=== PATIENT | male | born 1965 | race Caucasian/White ===

== ENCOUNTER 2020-05-19 21:23 | Emergency (ER) | payer OTHER, SELFPAY ==
[2020-05-19 21:40] VITALS: BP 156/94; PULSE 90; PULSE 96; RESP 14; TEMP 37.2; O2SAT 97
--- NOTE | 2020-05-19 22:14 | ECG_ITS ---
Measurements Intervals [place] Rate: 94 P: 58 VT: 158 QRS: 63 QRSD: 91 T: 54 QT: 341 QTc: 427 Interpretive Statements SINUS RHYTHM NORMAL ECG Electronically Signed On 05-20-2020 7:20:58 BOX ICER by Fadi La D.O.
--- NOTE | 2020-05-19 22:14 | ED.GENADULT ---
HPI - General Adult General Chief complaint: Unspecified Stated complaint: high blood pressure Source: patient Mode of arrival: ambulatory Limitations: no limitations History of Present Illness HPI narrative: Torrey is a 54M with a PMH of HTN, HLD and DMII that presented to the ED with a high blood pressure. He had had a headache and sinus pain. He has felt like this when his BP is high in the past so he checked it. It was >190 systolic on 2 separate occasions today so he came in to the ED. He denies CP, SOB, N/V, confusion, vision changes and anuria. Related Data Home Medications Medication Instructions Recorded Confirmed atorvastatin 20 mg PO HS 05/19/20 05/19/20 glipizide 2.5 mg PO BID 05/19/20 05/19/20 lisinopril 20 mg PO HS 05/19/20 05/19/20 Allergies Allergy/AdvReac Type Severity Reaction Status Date / Time No Known Allergies Allergy Verified 05/19/20 21:59 Review of Systems Constitutional: Constitutional: Reports no additional constitutional complaints Eyes: Eyes: Reports no additional eye complaints ENT: Reports system reviewed and no additional complaints, except as documented Cardiovascular: Cardiovascular: Reports as per HPI Respiratory: Respiratory: Reports no additional respiratory complaints Gastrointestinal: Gastrointestinal: Reports as per HPI Genitourinary: Genitourinary: Reports no additional male genitourinary complaints Musculoskeletal: Musculoskeletal: Reports no additional musculoskeletal complaints Integumentary/Breasts: Skin/Breast: Reports system reviewed and no additional complaints, except as docu Neurologic: Reports system reviewed and no additional complaints, except as documented Psychiatric: Psychiatric: Reports no additional psychiatric complaints Endocrine: Endocrine: Reports no additional endocrine complaints Hematologic/Lymphatic: Hematologic/Lymphatic: Reports no additional hematologic/lymphatic complaints Allergic/Immunologic: Allergic/Immunologic: Reports no additional allergic/immunologic complaints Exam Const: General: cooperative, healthy appearing, comfortable and no acute distress HENMT: Head: normal to inspection Eyes: General: appearance normal, both eyes and all related structures Neck: Neck: normal visual inspection Chest: Chest palpation & inspection: normal inspection of the chest Resp: Effort & Inspection: normal respiratory effort and able to speak in complete sentences Auscultation: clear to auscultation bilaterally Cardio: Jugular venous distension: no JVD Rate: regular rate Rhythm: regular rhythm Heart sounds: no murmurs GI: Auscultation: normal bowel sounds Back/Spine/Pelvis: Back: no CVA tenderness Skin: General skin exam: normal color and no rashes or lesions noted Neuro: General: oriented to person, oriented to place and oriented to time Extrem: General: normal to inspection Course Course Emergency Course: Torrey was seen and evaluated. Ordered amlodipine, an EKG and labs as below. EKG showed NSR with a rate of 94, normal axis and no ST elevation/depression. He is currently asymptomatic. Labs were largely unremarkable so he was discharged home to follow up with is PCP. Vital Signs Vital signs: Vital Signs Temperature 99 F 05/19/20 21:40 Pulse Rate 96 05/19/20 21:40 Respiratory Rate 14 05/19/20 21:40 Blood Pressure 156/94 H 05/19/20 21:40 Pulse Oximetry 97 05/19/20 21:40 Temperature 99 F 05/19/20 21:40 Pulse Rate 88 05/19/20 22:30 Respiratory Rate 18 05/19/20 22:30 Blood Pressure 140/84 05/19/20 22:30 Pulse Oximetry 97 05/19/20 21:40 Medical Decision Making Vital Signs Vital Signs: Vital Signs Temperature 99 F 05/19/20 21:40 Pulse Rate 96 05/19/20 21:40 Respiratory Rate 14 05/19/20 21:40 Blood Pressure 156/94 H 05/19/20 21:40 Pulse Oximetry 97 05/19/20 21:40 Temperature 99 F 05/19/20 21:40 Pulse Rate 88 05/19/20 22:30 Respiratory Rate 18
[2020-05-19] MEDS: amLODIPine BESYLATE 5 MG TABLET 10 MG PO (22:23)
--- NOTE | 2020-05-19 22:25 | PC.NURSE ---
report provided to oncoming RN Dinora Romano
[2020-05-19 22:30] VITALS: BP 140/84; PULSE 88; RESP 18
[2020-05-19 22:30] LABS: Basophils Absolute Auto 0.03 K/mm3 (0.00-0.10); Basophils Percent Auto 0.5 % (0.0-1.0); Eosinophils Absolute Auto 0.09 K/mm3 (0.02-0.50); Eosinophils Percent Auto 1.5 % (1.0-6.0); Hematocrit 42.1 % (40.0-54.0); Hemoglobin 13.8 g/dL (14.0-18.0); Immature Granulocyte Absolute 0.03 K/mm3 (0.00-0.00); Immature Granulocyte Percent A 0.5 % (0.0-0.0); Lymphocytes Absolute Auto 1.61 K/mm3 (1.10-4.50); Lymphocytes Percent Auto 27.4 % (18.0-42.0); Mean Corpuscular HGB Conc 32.8 g/dL (32.0-36.0); Mean Corpuscular Hemoglobin 31.4 pg (27.0-31.0); Mean Corpuscular Volume 95.7 fL (78.0-102.0); Mean Platelet Volume 8.9 fl (8.7-11.0); Monocytes Absolute Auto 0.81 K/mm3 (0.10-0.90); Monocytes Percent Auto 13.8 % (2.0-11.0); Neutrophils Absolute Auto 3.3 K/mm3 (1.7-7.2); Neutrophils Percent Auto 56.3 % (50.0-70.0); Platelet Count Result 173 K/mm3 (150-420); Red Cell Distribution Width 12.5 % (11.6-14.4); White Blood Count 5.9 K/mm3 (4.8-10.8)
[2020-05-19 22:48] LABS: Anion Gap 11 mmol/L (8-16); Blood Urea Nitrogen 17 mg/dL (7-18); Calcium 9.2 mg/dL (8.5-10.1); Carbon Dioxide 25 mmol/L (21-32); Chloride 103 mmol/L (98-108); Estimated CRCL calculation 65 ml/min; Estimated Glomerular Filt Rate > 60; Glucose 190 mg/dL (70-99); Osmolality Calculated 294 mOsm/kg (285-295); Potassium 3.8 mmol/L (3.5-5.1); Sodium 139 mmol/L (136-145); Troponin I 6.5 ng/L (0.00-60.4)
[2020-05-19 23:02] VITALS: BP 142/88; PULSE 82; RESP 18; TEMP 36.6; O2SAT 96
== END 2020-05-19 23:02 | disposition home or self-care (01) ==
PROVIDERS: Emergency Provider Family Medicine; PCP Physician Assistant
DX: I16.0 Hypertensive urgency (principal)
CPT/HCPCS: 36415; 80048; 84484; 85025; 93005; 99283; 99284; A9270

== ENCOUNTER 2020-08-01 19:15 | Emergency (ER) | payer OTHER, SELFPAY ==
--- NOTE | ~2020-08-01 | CT_ITS ---
EXAMINATION: CT brain wo con EXAM DATE: 08/01/2020 20:10 INDICATION: New onset severe headache. TECHNIQUE: Spiral CT of the head was performed without contrast. Axial, coronal and sagittal images were reviewed. The dose-length product (DLP) for this examination was 605.33 mGy-cm. The exposure w as tailored according to patient size, and iterative reconstruction (ASIR) was used as additional dos e reduction technique. There is no prior study for comparison. FINDINGS: There is no acute intraparenchymal hemorrhage. No evidence of intraparenchymal brain mass lesion. No evidence of acute infarction. There is no mass effect or midline shift. The ventricles are normal in size. There are no extra-axial collections. There are no acute calvarial fractures. T he orbits are unremarkable. Soft tissue is unremarkable. Completely opacified left sphenoid sinus with mucoperiosteal thickening and fluid. There is mild to m oderate right maxillary sinus and mild left ethmoid sinus mucoperiosteal thickening. The mastoid air cells are well aerated. IMPRESSION: 1. No acute intracranial findings. 2. Sinus opacity as above. Reviewed, dictated and finalized at location A. FITS SPECIALIST RECRUITER
[2020-08-01 19:32] VITALS: BP 127/77; PULSE 111; RESP 20; TEMP 36.7; O2SAT 96
--- NOTE | 2020-08-01 19:35 | ED.HA ---
HPI - Headache General Chief Complaint: Headache Stated Complaint: headache Time Seen by Provider: 08/01/20 19:30 Source: patient and family Mode of arrival: ambulatory Limitations: no limitations History of Present Illness HPI Narrative: Patient comes in stating he did not feel well last pm. He woke this am and has had a headache since this morning. He took some ibuprofen and it did not help much then he says. He has done nothing else to help the headache. He says this is a severe headache that has been ongoing. MD elicited complaint: headache Pertinent past history: other (Denies history of migraine. No fever or chills. No ) Onset (ago): hour(s) Location: frontal Severity: moderate Quality & Timing: throbbing and pulsatile Exacerbating factors: exertion Context: occurred at rest Associated symptoms: none Treatments prior to arrival: ibuprofen Related Data Home Medications Medication Instructions Recorded Confirmed atorvastatin 20 mg PO HS 05/19/20 08/01/20 glipizide 2.5 mg PO BID 05/19/20 08/01/20 lisinopril 40 mg PO DAILY 08/01/20 08/01/20 metformin 1,000 mg PO BID 08/01/20 08/01/20 Allergies Allergy/AdvReac Type Severity Reaction Status Date / Time No Known Allergies Allergy Verified 08/01/20 20:08 Review of Systems Constitutional: Constitutional: Reports no additional constitutional complaints Eyes: Eyes: Reports no additional eye complaints ENT: Reports system reviewed and no additional complaints, except as documented Cardiovascular: Cardiovascular: Reports no additional cardiovascular complaints Respiratory: Respiratory: Reports no additional respiratory complaints Gastrointestinal: Gastrointestinal: Reports no additional gastrointestinal complaints Genitourinary: Genitourinary: Reports no additional male genitourinary complaints Musculoskeletal: Musculoskeletal: Reports no additional musculoskeletal complaints Integumentary/Breasts: Skin/Breast: Reports system reviewed and no additional complaints, except as docu Neurologic: Reports system reviewed and no additional complaints, except as documented Psychiatric: Psychiatric: Reports no additional psychiatric complaints Endocrine: Endocrine: Reports no additional endocrine complaints Hematologic/Lymphatic: Hematologic/Lymphatic: Reports no additional hematologic/lymphatic complaints Allergic/Immunologic: Allergic/Immunologic: Reports no additional allergic/immunologic complaints PMFSH Past Medical History Medical History Diabetes HTN (hypertension) Hyperlipemia Family History Family History (Updated 08/01/20 @ 21:14 by Alec Andrew MD) Father Hypertension Diabetes mellitus Mother Anemia Aneurysm Social History Social History (Updated 08/01/20 @ 21:09 by Alec Andrew MD) Smoking status: Never smoker Alcohol use details: He drinks 6-8 beers usually 3-4 nights a week Living arrangements: with family Gender identity (if verbalized by the patient): Male Exam Const: General: no acute distress and alert Orientation/consciousness: patient oriented x3 HENMT: Head: normal to inspection Ears: external ears normal and TM's normal bilaterally General nose exam: Normal external nose present Face and sinus: normal facial exam Mouth: Yes Normal oral and palatal mucosa present Eyes: Conjunctivae: conjunctivae normal Neck: Neck: normal visual inspection and no lymphadenopathy Chest: Chest palpation & inspection: normal inspection of the chest Resp: Effort & Inspection: normal respiratory effort Auscultation: clear to auscultation bilaterally Cardio: Rate: regular rate Rhythm: regular rhythm GI: GI Palp: Yes Soft to palpation (nontender) Skin: General skin exam: normal color Neuro: General: patient oriented x3, moves all extremities and no meningeal signs Other: negative Kernig's negative Brudsinski's Extrem: General: normal to inspection Psy
[2020-08-01] MEDS: AMOXICILLIN/CLAVULANATE K 875-125 MG TAB 1 TABLET PO (20:57)
[2020-08-01] MEDS: DIVALPROEX SODIUM ER 500 MG TAB.24H PO (20:58)
[2020-08-01] MEDS: KETOROLAC (*BKC) 60 MG/2 ML VIAL IM (20:59)
[2020-08-01 21:15] VITALS: BP 128/82; PULSE 90; RESP 20; O2SAT 96
== END 2020-08-01 21:25 | disposition home or self-care (01) ==
PROVIDERS: Emergency Provider Emergency Medicine; PCP Physician Assistant
DX: G44.89 Other headache syndrome (principal); J01.40 Acute pansinusitis, unspecified
CPT/HCPCS: 70450; 96372; 99283; 99284; A9270; J1885

== ENCOUNTER 2020-10-25 08:15 | Outpatient (CLI) | payer OTHER, SELFPAY ==
--- NOTE | ~2020-10-25 | XR_ITS ---
XR knee LT 3V DATE: 10/25/2020 08:33 INDICATION: Medial left knee pain. No known injury. TECHNIQUE: 3 views COMPARISON: None FINDINGS: No fracture or dislocation or joint effusion. Joint spaces are preserved. No radiopaque int ra-articular loose body or chondrocalcinosis. IMPRESSION: No significant abnormality Reviewed, dictated and finalized at location A. IMPRESSION: No significant abnormality
== END 2020-10-25 08:16 | disposition home or self-care (01) ==
LOC: CHSIMG 08:17
PROVIDERS: PCP Physician Assistant; Visit Provider Physician Assistant
DX: M25.562 Pain in left knee (principal)
CPT/HCPCS: 73562

== ENCOUNTER 2023-04-20 08:43 | Outpatient (CLI) | payer OTHER, SELFPAY ==
--- NOTE | ~2023-04-20 | XR_ITS ---
EXAMINATION: XR hand LT min 3V INDICATION: Left hand pain and swelling TECHNIQUE: Three views of the left hand are obtained. COMPARISON: None available FINDINGS: There is moderate osteoarthritis at the first through third metacarpophalangeal joints. The re is mild osteoarthritis of multiple interphalangeal joints. Bone alignment is normal. No fracture i s identified. The soft tissues are unremarkable. IMPRESSION: 1. Polyarticular osteoarthritis without acute osseous abnormality. Reviewed, dictated and finalized at location B. PING PRESS OPERATOR
== END 2023-04-20 08:44 | disposition home or self-care (01) ==
LOC: CHSIMG 08:45
PROVIDERS: PCP Physician Assistant; Visit Provider Physician Assistant
DX: M79.642 Pain in left hand (principal); M19.042 Primary osteoarthritis, left hand
CPT/HCPCS: 73130